=== PATIENT | female | born 1990 | race Caucasian/White ===

== ENCOUNTER → 2019-05-25 13:09 | Outpatient (CLI) | payer OTHER ==
--- NOTE | 2019-05-27 09:07 | ST ---
PATIENT:CHERRY LANDRUM MEDICAL RECORD: [id number] SEX: F LOCATION:[facility] ORDER #: ADMISSION DATE: 05/25/19 AGE OF PATIENT: 28 REFERRING PHYSICIAN: INTERPRETING PHYSICIAN: REJI GRAMAJO MD DATE OF SERVICE: 05/25/2019 PROCEDURE: Treadmill stress test. TECHNIQUE: Baseline ECG is normal. Exercised for 10 minutes on Edvin protocol. Maximum heart rate is 170 beats per minute, greater than 85% of max predicted. No ECG changes of ischemia. No symptoms of ischemia. Normal blood pressure response to exercise. No arrhythmias noted. Good exercise tolerance for age. TRANSINT:[id number] Voice Confirmation ID: [id number] DOCUMENT ID: [id number] REJI GRAMAJO MD at 0907 CC: [id number] DICTATION DATE: 05/26/19 1407 RESTAURANT MGR: 05/26/19 1429 DEP CLI 05/25/19 [id number] [place] [address]
--- NOTE | 2019-06-08 13:38 | EC ---
PATIENT:CHERRY LANDRUM DATE OF SERVICE: 05/25/19 SEX: F MEDICAL RECORD: [id number] DATE OF : [birth year] LOCATION:[facility] AGE OF PATIENT: 28 ADMISSION DATE: 05/25/19 REFERRING PHYSICIAN: INTERPRETING PHYSICIAN: REJI GRAMAJO MD ECHOCARDIOGRAM REPORT ECHO CHARGES 4 ECHO COMPLETE Date: 05/25/19 CLINICAL DIAGNOSIS: HEART MURMUR ECHOCARDIOGRAPHIC MEASUREMENTS (adult normal given) AC root (d.<3.7cm) 3.1 cm LV Septum d (<1.2 cm> 1.1 cm Valve Excursion 1.6 cm LV Septum (systole) 1.2 cm Left Atria (s.<4.0cm> 3.1 cm LVPW d(<1.2cm) 1.2 cm RV (d.<2.3cm) 4.1 cm LVPW (sytole) 1.8 cm LV diastole(<5.6CM) 4.4 cm MV E-F(>70mm/sec) cm LV systole 2.6 cm LVOT Diameter 1.8 cm MV exc.(>10mm) 1.6 cm Est.ejection fraction (50-75%) % DOPPLER: LVIT cm/sec A 62.0 cm/sec E 98.0 cm/sec LA cm/sec RVSP 23 mmHg LVOT 104 cm/sec AOP1/2T m/s Asc. Ao 164 cm/sec RVOT 65 cm/sec RA cm/sec PA 105 cm/sec AV Gradient Peak 10.78mmHg AV Mean 5.17 mmHg AV Area 1.7 cm MV Gradient Peak 4.55 mmHg MV Mean 1.23 mmHg MV Area cm COMMENTS: Adjunct Faculty For Medical Terminology: 2 RAQUEL NUÑEZ Solar Development Engineer: 3 Dr. Carl TAPE# PACS Pericardial Effusion N DATE OF SERVICE: Adequate 2D, color flow imaging, spectral Doppler, and M-mode. No LVH. LV internal dimension is normal. Wall motion is normal. EF is greater than or equal to 55%. The aortic valve is tricuspid. No evidence of stenosis by Doppler interrogation. Left atrium is normal. Mitral valve shows no prolapse. Trace MR. Right-sided chambers grossly normal. Trace TR. TRANSINT:[id number] Voice Confirmation ID: [id number] DOCUMENT ID: [id number] ECHOCARDIOGRAM REPORT [id number] CHERRY LANDRUM REJI GRAMAJO MD at 1338 CC: [id number] DICTATION DATE: 06/07/19 1455 CLIENT INTEGRATION MANAGER: 06/08/19 0022 DEP CLI 05/25/19 [id number] [place] [address]
== END | disposition home or self-care (01) ==
LOC: D.HCCECHO 13:09
PROVIDERS: ATTEND Internal Medicine Interventional Cardiology
DX: R01.1 Cardiac murmur, unspecified (principal)

== ENCOUNTER 2020-11-30 18:26 | Emergency (ER) | payer OTHER ==
[~2020-11-30] VITALS: Ht 162.6 cm; Wt 118.2 kg
[2020-11-30 18:36] VITALS: BP 159/93; Ht 162.6 cm; Wt 118.2 kg
[2020-11-30] MEDS ORDERED: PRENAVITE1 TAB PO (18:37)
[2020-11-30 19:05] LABS: BASOPHILS 0.2 % (0-2); EOSINOPHILS 3.2 % (0-7); HEMATOCRIT 39.6 % (36.0-48.0); HEMOGLOBIN 13.5 g/dL (12-16); IMMATURE GRANULOCYTES 0.3 % (0-5); LYMPHOCYTE ABS# 3.83 10x3/uL (1.18-3.74); MCH 29.1 pg (26.0-34.0); MCHC 34.1 g/dL (31.0-37.0); MCV 85.3 fL (80.0-100.0); MEAN PLATELET VOLUME 9.4 fL (7.4-10.4); MONOCYTES 9.3 % (2-11); NEUTROPHIL ABS# 5.42 10x3/uL (1.56-6.13); PLATELET COUNT 333 10x3/uL (130-400); RBC 4.64 10x6/uL (4.00-5.40); RDW 12.7 % (11.5-14.5); WBC 10.6 10x3/uL (4.8-10.8)
[2020-11-30 19:20] LABS: BILIRUBIN NEGATIVE (NEGATIVE); KETONE NEGATIVE (NEGATIVE); NITRITE NEGATIVE (NEGATIVE); UROBILINOGEN NORMAL mg/dL (< 2)
[2020-11-30 19:21] LABS: CALC OSMOLALITY 272 mosm/kg (275-300); CALCIUM 8.4 mg/dL (8.5-10.1); CARBON DIOXIDE 22.5 mmol/L (21.0-32.0); CHLORIDE - SERUM 103 mmol/L (98-107); CREATININE - SERUM 0.8 mg/dL (0.6-1.3); GLUCOSE 110 mg/dL (74-106); HCG SERUM POSITIVE (NEGATIVE); POTASSIUM - SERUM 3.6 mmol/L (3.5-5.1); SODIUM 137 mmol/L (136-145); UREA NITROGEN 7 mg/dL (7-18); eGFR NON AFRICAN AMERICAN 89 mL/min (90-120)
[2020-11-30 19:22] LABS: SQUAMOUS EPITHELIAL OCC HPF (0-4); WHITE CELLS - URINE 0-5 HPF (0-4)
[2020-11-30 19:26] LABS: ALBUMIN 3.4 g/dL (3.4-5.0); ALKALINE PHOSPHATASE 107 U/L (30-120); ALT (SGPT) 25 U/L (10-68); BILIRUBIN - TOTAL 0.14 mg/dL (0.2-1.3); PROTEIN - SERUM 7.4 g/dL (6.4-8.2)
[2020-11-30] MEDS ORDERED: HYDROCODONE-AC1 EAC2 PO (21:34)
== END 2020-11-30 21:39 | disposition home or self-care (01) ==
LOC: D.ER 18:26
PROVIDERS: Student in an Organized Health Care Education/Training Program
DX: O02.1 Missed abortion (principal); Z3A.01 Less than 8 weeks gestation of pregnancy